=== PATIENT | female | born 1990 | race Caucasian/White ===

== ENCOUNTER → 2023-12-21 08:51 | Day surgery (SDC) | payer BC, MEDICAID, SELFPAY | LOC: GI 08:51 | PROVIDERS: ATTENDING PHYSICIAN Internal Medicine Gastroenterology; FAMILY PHYSICIAN Nurse Practitioner | DX: Z12.11 Encounter for screening for malignant neoplasm of colon (principal); Z98.0 Intestinal bypass and anastomosis status; K64.8 Other hemorrhoids; K52.89 Other specified noninfective gastroenteritis and colitis; K51.40 Inflammatory polyps of colon without complications | CPT/HCPCS: 45385; 45380; 88305 ==

== ENCOUNTER → 2024-01-07 08:40 | Outpatient (REF) | payer BC, MEDICAID, SELFPAY | LOC: MRI 3T 08:40 | PROVIDERS: ATTENDING PHYSICIAN Internal Medicine Gastroenterology; FAMILY PHYSICIAN Nurse Practitioner | DX: K50.80 Crohn's disease of both small and large intestine without complications (principal) | CPT/HCPCS: 72197; 74183; A9575 ==